=== PATIENT | male | born 1970 | race Caucasian/White ===

== ENCOUNTER 2022-03-08 16:23 | Inpatient (IN) | payer OTHER ==
[2022-03-08 17:24] VITALS: BMI 25.8
[2022-03-08] MEDS ORDERED: LOPERAMIDE HCL 2 MG CAPSULE PO PRN (17:41)
[2022-03-08] MEDS ORDERED: P-EPHED 60MG/TRIPROLIDI 2.5MG TABLET PO PRN (17:41)
[2022-03-08] MEDS ORDERED: guaiFENesin 200 MG/10 ML 10 ML UNIT-DOSE CUPS PO PRN (17:41)
[2022-03-08] MEDS ORDERED: MAGNESIUM CITRATE 300 ML BOTTLE PO PRN (17:41)
[2022-03-08] MEDS ORDERED: MAG HYDROX/AL HYDROX/SIMETH 30 ML UNIT-DOSE CUP PO PRN (17:41)
[2022-03-08] MEDS ORDERED: MAGNESIUM HYDROX 2400MG/30ML ORAL SUSPENSION 30 ML CUP PO PRN (17:41)
[2022-03-08] MEDS: GABAPENTIN 300 MG CAPSULE PO SCH (21:27)
[2022-03-08] MEDS: THIAMINE HCL 100 MG TABLET (FP) PO SCH (21:27)
[2022-03-08] MEDS: hydrOXYzine PAMOATE 25 MG CAPSULE (FP) PO SCH ×2 (21:27→21:29)
[2022-03-08] MEDS: QUEtiapine FUMARATE 50 MG TABLET PO SCH (21:27)
[2022-03-08] MEDS: ATORVASTATIN CA 80 MG TABLET (FP) PO SCH (21:27)
[2022-03-08] MEDS ORDERED: TUBERCULIN PPD 5 TU/0.1ML VIAL ID ONE (21:28)
[2022-03-08] MEDS: MELATONIN 5 MG TABLETS PO SCH (21:29)
[2022-03-09] MEDS: metFORMIN HCL 500 MG TABLET (FP) PO SCH ×2 (07:27→17:04)
[2022-03-09] MEDS: GABAPENTIN 300 MG CAPSULE PO SCH ×3 (07:27→21:08)
[2022-03-09] MEDS: hydrOXYzine PAMOATE 25 MG CAPSULE (FP) PO SCH ×5 (07:27→21:10)
[2022-03-09] MEDS: PRENATAL VITAMINS W/ FOLIC ACID TABLET (FP) PO SCH (09:28)
[2022-03-09] MEDS: QUEtiapine FUMARATE 50 MG TABLET PO SCH (09:28)
[2022-03-09 10:51] LABS: HEMATOCRIT 36.7 % (35.4-49); HEMOGLOBIN 12.5 GM/dL (11.7-16.9); MCH 27.4 pg (25.7-33.7); MCHC 34.2 g/dl (32.0-35.9); MEAN CELL VOLUME 80.2 fl (80-96); MEAN PLT VOLUME 8.5 fl (7.5-11.1); PLATELET COUNT 193 10^3/uL (134-434); RBC 4.57 M/mm3 (4.00-5.60); RDW 12.8 % (11.9-15.9); WHITE BLOOD COUNT 3.8 K/mm3 (4.0-10.0)
[2022-03-09 10:55] LABS: ALBUMIN 3.4 g/dl (3.4-5.0); BLOOD UREA NITROGEN 16.3 mg/dL (7-18); CALCIUM 9.2 mg/dL (8.5-10.1)
[2022-03-09 10:58] LABS: CREATININE 0.7 mg/dL (0.55-1.3); TOT PROT 6.2 g/dl (6.4-8.2)
[2022-03-09 10:59] LABS: BILIRUBIN,TOTAL 0.1 mg/dL (0.2-1)
[2022-03-09 13:44] LABS: SYPHILIS W/ RPR CONF NON-REACTIVE (NONREACTIVE)
[2022-03-09 14:25] LABS: URINE APPEARANCE CLEAR; URINE BILIRUBIN NEGATIVE (NEGATIVE); URINE COLOR YELLOW; URINE GLUCOSE (UA) TRACE (NEGATIVE); URINE KETONE NEGATIVE (NEGATIVE); URINE LEUK ESTERASE NEGATIVE (NEGATIVE); URINE NITRITE NEGATIVE (NEGATIVE); URINE PROTEIN NEGATIVE (NEGATIVE); URINE UROBILINOGEN 0.2 mg/dL (0.2-1.0)
[2022-03-09] MEDS: ATORVASTATIN CA 80 MG TABLET (FP) PO SCH (21:08)
[2022-03-09] MEDS: MELATONIN 5 MG TABLETS PO SCH (21:08)
[2022-03-09] MEDS: THIAMINE HCL 100 MG TABLET (FP) PO SCH (21:08)
[2022-03-09] MEDS: BACITRACIN 0.9 GM PACKET TP SCH (21:10)
[2022-03-09] MEDS: QUEtiapine FUMARATE 100 MG TABLET (FP) PO SCH (21:10)
[2022-03-10] MEDS: GABAPENTIN 300 MG CAPSULE PO SCH ×3 (06:48→21:16)
[2022-03-10] MEDS: hydrOXYzine PAMOATE 25 MG CAPSULE (FP) PO SCH ×3 (06:48→13:35)
[2022-03-10] MEDS: metFORMIN HCL 500 MG TABLET (FP) PO SCH ×2 (06:48→16:50)
[2022-03-10] MEDS: BACITRACIN 0.9 GM PACKET TP SCH ×2 (10:02→21:16)
[2022-03-10] MEDS: PRENATAL VITAMINS W/ FOLIC ACID TABLET (FP) PO SCH (10:02)
[2022-03-10] MEDS: QUEtiapine FUMARATE 50 MG TABLET PO SCH (10:02)
[2022-03-10] MEDS: ACETAMINOPHEN 325 MG TABLET (FP) PO PRN ×2 (11:53→20:01)
[2022-03-10] MEDS: MELATONIN 5 MG TABLETS PO SCH (21:16)
[2022-03-10] MEDS: ATORVASTATIN CA 80 MG TABLET (FP) PO SCH (21:16)
[2022-03-10] MEDS: THIAMINE HCL 100 MG TABLET (FP) PO SCH (21:16)
[2022-03-10] MEDS: QUEtiapine FUMARATE 100 MG TABLET (FP) PO SCH (21:16)
[2022-03-11] MEDS: ACETAMINOPHEN 325 MG TABLET (FP) PO PRN (01:12)
[2022-03-11] MEDS: GABAPENTIN 300 MG CAPSULE PO SCH ×3 (06:29→21:01)
[2022-03-11] MEDS: metFORMIN HCL 500 MG TABLET (FP) PO SCH ×2 (06:29→17:33)
[2022-03-11] MEDS: METHOCARBAMOL 500 MG TABLET PO PRN ×2 (09:01→17:33)
[2022-03-11] MEDS: QUEtiapine FUMARATE 50 MG TABLET PO SCH (10:01)
[2022-03-11] MEDS: PRENATAL VITAMINS W/ FOLIC ACID TABLET (FP) PO SCH (10:01)
[2022-03-11] MEDS: METHYL SALICYLATE/MENTHOL OINT 30 GM TUBE TP SCH ×2 (10:01→21:02)
[2022-03-11] MEDS: BACITRACIN 0.9 GM PACKET TP SCH ×2 (10:01→21:01)
[2022-03-11] MEDS: ATORVASTATIN CA 80 MG TABLET (FP) PO SCH (21:01)
[2022-03-11] MEDS: THIAMINE HCL 100 MG TABLET (FP) PO SCH (21:02)
[2022-03-11] MEDS: QUEtiapine FUMARATE 100 MG TABLET (FP) PO SCH (21:02)
[2022-03-11] MEDS: MELATONIN 5 MG TABLETS PO SCH (21:02)
[2022-03-11] MEDS: hydrOXYzine PAMOATE 25 MG CAPSULE (FP) PO PRN (22:36)
[2022-03-12] MEDS: metFORMIN HCL 500 MG TABLET (FP) PO SCH ×2 (06:34→16:45)
[2022-03-12] MEDS: GABAPENTIN 300 MG CAPSULE PO SCH ×3 (06:34→21:23)
[2022-03-12] MEDS: BACITRACIN 0.9 GM PACKET TP SCH ×2 (09:12→21:23)
[2022-03-12] MEDS: METHYL SALICYLATE/MENTHOL OINT 30 GM TUBE TP SCH ×2 (09:12→21:24)
[2022-03-12] MEDS: PRENATAL VITAMINS W/ FOLIC ACID TABLET (FP) PO SCH (09:12)
[2022-03-12] MEDS: METHOCARBAMOL 500 MG TABLET PO PRN ×2 (09:13→16:45)
[2022-03-12] MEDS: QUEtiapine FUMARATE 50 MG TABLET PO SCH (09:13)
[2022-03-12] MEDS: ACETAMINOPHEN 325 MG TABLET (FP) PO PRN ×2 (12:41→18:50)
[2022-03-12] MEDS: MELATONIN 5 MG TABLETS PO SCH (21:22)
[2022-03-12] MEDS: THIAMINE HCL 100 MG TABLET (FP) PO SCH (21:22)
[2022-03-12] MEDS: ATORVASTATIN CA 80 MG TABLET (FP) PO SCH (21:23)
[2022-03-12] MEDS: QUEtiapine FUMARATE 100 MG TABLET (FP) PO SCH (21:23)
[2022-03-12] MEDS: hydrOXYzine PAMOATE 25 MG CAPSULE (FP) PO PRN (21:24)
[2022-03-13] MEDS: metFORMIN HCL 500 MG TABLET (FP) PO SCH ×2 (06:34→16:43)
[2022-03-13] MEDS: ACETAMINOPHEN 325 MG TABLET (FP) PO PRN ×2 (06:35→19:06)
[2022-03-13] MEDS: GABAPENTIN 300 MG CAPSULE PO SCH ×3 (06:35→21:15)
[2022-03-13] MEDS: PRENATAL VITAMINS W/ FOLIC ACID TABLET (FP) PO SCH (10:00)
[2022-03-13] MEDS: BACITRACIN 0.9 GM PACKET TP SCH ×2 (10:00→21:13)
[2022-03-13] MEDS: QUEtiapine FUMARATE 50 MG TABLET PO SCH (10:00)
[2022-03-13] MEDS: METHYL SALICYLATE/MENTHOL OINT 30 GM TUBE TP SCH ×2 (10:01→21:43)
[2022-03-13] MEDS: METHOCARBAMOL 500 MG TABLET PO PRN (19:06)
[2022-03-13] MEDS: MELATONIN 5 MG TABLETS PO SCH (21:13)
[2022-03-13] MEDS: THIAMINE HCL 100 MG TABLET (FP) PO SCH (21:13)
[2022-03-13] MEDS: QUEtiapine FUMARATE 100 MG TABLET (FP) PO SCH (21:15)
[2022-03-13] MEDS: hydrOXYzine PAMOATE 25 MG CAPSULE (FP) PO PRN (21:15)
[2022-03-13] MEDS: ATORVASTATIN CA 80 MG TABLET (FP) PO SCH (21:15)
[2022-03-14] MEDS: metFORMIN HCL 500 MG TABLET (FP) PO SCH ×2 (06:14→16:31)
[2022-03-14] MEDS: GABAPENTIN 300 MG CAPSULE PO SCH ×3 (06:14→21:32)
[2022-03-14] MEDS: METHOCARBAMOL 500 MG TABLET PO PRN ×2 (10:16→21:34)
[2022-03-14] MEDS: PRENATAL VITAMINS W/ FOLIC ACID TABLET (FP) PO SCH (10:16)
[2022-03-14] MEDS: BACITRACIN 0.9 GM PACKET TP SCH ×2 (10:16→21:32)
[2022-03-14] MEDS: QUEtiapine FUMARATE 50 MG TABLET PO SCH (10:16)
[2022-03-14] MEDS: METHYL SALICYLATE/MENTHOL OINT 30 GM TUBE TP SCH ×2 (10:17→21:54)
[2022-03-14] MEDS: MELATONIN 5 MG TABLETS PO SCH (21:32)
[2022-03-14] MEDS: ATORVASTATIN CA 80 MG TABLET (FP) PO SCH (21:32)
[2022-03-14] MEDS: QUEtiapine FUMARATE 100 MG TABLET (FP) PO SCH (21:32)
[2022-03-14] MEDS: THIAMINE HCL 100 MG TABLET (FP) PO SCH (21:32)
[2022-03-15] MEDS: metFORMIN HCL 500 MG TABLET (FP) PO SCH ×2 (06:20→16:48)
[2022-03-15] MEDS: GABAPENTIN 300 MG CAPSULE PO SCH ×3 (06:20→21:32)
[2022-03-15] MEDS: METHOCARBAMOL 500 MG TABLET PO PRN (06:26)
[2022-03-15] MEDS: METHYL SALICYLATE/MENTHOL OINT 30 GM TUBE TP SCH ×2 (09:59→21:35)
[2022-03-15] MEDS: BACITRACIN 0.9 GM PACKET TP SCH ×2 (09:59→21:32)
[2022-03-15] MEDS: QUEtiapine FUMARATE 50 MG TABLET PO SCH (10:00)
[2022-03-15] MEDS: PRENATAL VITAMINS W/ FOLIC ACID TABLET (FP) PO SCH (10:00)
[2022-03-15] MEDS ORDERED: AMOXICILLIN 500 MG CAPSULE (FP) PO ONE (11:04)
[2022-03-15] MEDS: AMOXICILLIN 500 MG CAPSULE (FP) PO SCH ×2 (14:40→21:32)
[2022-03-15] MEDS: ATORVASTATIN CA 80 MG TABLET (FP) PO SCH (21:32)
[2022-03-15] MEDS: THIAMINE HCL 100 MG TABLET (FP) PO SCH (21:32)
[2022-03-15] MEDS: QUEtiapine FUMARATE 100 MG TABLET (FP) PO SCH (21:32)
[2022-03-15] MEDS: MELATONIN 5 MG TABLETS PO SCH (21:32)
[2022-03-15] MEDS: hydrOXYzine PAMOATE 25 MG CAPSULE (FP) PO PRN (21:33)
[2022-03-16] MEDS: metFORMIN HCL 500 MG TABLET (FP) PO SCH ×2 (06:40→16:33)
[2022-03-16] MEDS: METHOCARBAMOL 500 MG TABLET PO PRN (06:40)
[2022-03-16] MEDS: GABAPENTIN 300 MG CAPSULE PO SCH ×3 (06:40→21:32)
[2022-03-16] MEDS: AMOXICILLIN 500 MG CAPSULE (FP) PO SCH ×3 (06:40→21:32)
[2022-03-16] MEDS: BACITRACIN 0.9 GM PACKET TP SCH ×2 (10:07→21:32)
[2022-03-16] MEDS: QUEtiapine FUMARATE 50 MG TABLET PO SCH (10:07)
[2022-03-16] MEDS: PRENATAL VITAMINS W/ FOLIC ACID TABLET (FP) PO SCH (10:07)
[2022-03-16] MEDS: METHYL SALICYLATE/MENTHOL OINT 30 GM TUBE TP SCH ×2 (10:08→21:32)
[2022-03-16] MEDS: ACETAMINOPHEN 325 MG TABLET (FP) PO PRN (18:48)
[2022-03-16] MEDS: QUEtiapine FUMARATE 100 MG TABLET (FP) PO SCH (21:32)
[2022-03-16] MEDS: THIAMINE HCL 100 MG TABLET (FP) PO SCH (21:32)
[2022-03-16] MEDS: MELATONIN 5 MG TABLETS PO SCH (21:32)
[2022-03-16] MEDS: ATORVASTATIN CA 80 MG TABLET (FP) PO SCH (21:33)
[2022-03-17] MEDS: AMOXICILLIN 500 MG CAPSULE (FP) PO SCH ×3 (06:20→21:26)
[2022-03-17] MEDS: metFORMIN HCL 500 MG TABLET (FP) PO SCH ×2 (06:20→16:31)
[2022-03-17] MEDS: GABAPENTIN 300 MG CAPSULE PO SCH ×3 (06:20→21:26)
[2022-03-17] MEDS: METHOCARBAMOL 500 MG TABLET PO PRN (06:20)
[2022-03-17] MEDS: METHYL SALICYLATE/MENTHOL OINT 30 GM TUBE TP SCH ×2 (09:37→21:27)
[2022-03-17] MEDS: QUEtiapine FUMARATE 50 MG TABLET PO SCH (09:37)
[2022-03-17] MEDS: PRENATAL VITAMINS W/ FOLIC ACID TABLET (FP) PO SCH (09:37)
[2022-03-17] MEDS: BACITRACIN 0.9 GM PACKET TP SCH ×2 (09:37→21:27)
[2022-03-17] MEDS: hydrOXYzine PAMOATE 25 MG CAPSULE (FP) PO PRN (21:26)
[2022-03-17] MEDS: ATORVASTATIN CA 80 MG TABLET (FP) PO SCH (21:27)
[2022-03-17] MEDS: THIAMINE HCL 100 MG TABLET (FP) PO SCH (21:28)
[2022-03-17] MEDS: QUEtiapine FUMARATE 100 MG TABLET (FP) PO SCH (21:28)
[2022-03-17] MEDS: MELATONIN 5 MG TABLETS PO SCH (21:28)
[2022-03-18] MEDS: METHOCARBAMOL 500 MG TABLET PO PRN (06:36)
[2022-03-18] MEDS: metFORMIN HCL 500 MG TABLET (FP) PO SCH ×2 (06:36→17:14)
[2022-03-18] MEDS: AMOXICILLIN 500 MG CAPSULE (FP) PO SCH ×3 (06:36→21:44)
[2022-03-18] MEDS: GABAPENTIN 300 MG CAPSULE PO SCH ×3 (06:37→21:45)
[2022-03-18] MEDS: BACITRACIN 0.9 GM PACKET TP SCH ×2 (10:12→21:44)
[2022-03-18] MEDS: METHYL SALICYLATE/MENTHOL OINT 30 GM TUBE TP SCH ×2 (10:13→21:46)
[2022-03-18] MEDS: PRENATAL VITAMINS W/ FOLIC ACID TABLET (FP) PO SCH (10:13)
[2022-03-18] MEDS: QUEtiapine FUMARATE 50 MG TABLET PO SCH (10:13)
[2022-03-18] MEDS: THIAMINE HCL 100 MG TABLET (FP) PO SCH (21:44)
[2022-03-18] MEDS: ATORVASTATIN CA 80 MG TABLET (FP) PO SCH (21:45)
[2022-03-18] MEDS: MELATONIN 5 MG TABLETS PO SCH (21:45)
[2022-03-18] MEDS: QUEtiapine FUMARATE 100 MG TABLET (FP) PO SCH (21:45)
[2022-03-19] MEDS: AMOXICILLIN 500 MG CAPSULE (FP) PO SCH ×3 (06:17→21:26)
[2022-03-19] MEDS: metFORMIN HCL 500 MG TABLET (FP) PO SCH ×2 (06:17→16:42)
[2022-03-19] MEDS: GABAPENTIN 300 MG CAPSULE PO SCH ×3 (06:17→21:26)
[2022-03-19] MEDS: METHYL SALICYLATE/MENTHOL OINT 30 GM TUBE TP SCH ×2 (10:07→21:27)
[2022-03-19] MEDS: QUEtiapine FUMARATE 50 MG TABLET PO SCH (10:07)
[2022-03-19] MEDS: PRENATAL VITAMINS W/ FOLIC ACID TABLET (FP) PO SCH (10:07)
[2022-03-19] MEDS: BACITRACIN 0.9 GM PACKET TP SCH ×2 (10:07→21:26)
[2022-03-19] MEDS: MELATONIN 5 MG TABLETS PO SCH (21:26)
[2022-03-19] MEDS: ATORVASTATIN CA 80 MG TABLET (FP) PO SCH (21:26)
[2022-03-19] MEDS: QUEtiapine FUMARATE 100 MG TABLET (FP) PO SCH (21:26)
[2022-03-19] MEDS: THIAMINE HCL 100 MG TABLET (FP) PO SCH (21:26)
[2022-03-20] MEDS: AMOXICILLIN 500 MG CAPSULE (FP) PO SCH ×3 (07:00→21:23)
[2022-03-20] MEDS: metFORMIN HCL 500 MG TABLET (FP) PO SCH ×2 (07:00→16:44)
[2022-03-20] MEDS: GABAPENTIN 300 MG CAPSULE PO SCH ×3 (07:00→21:23)
[2022-03-20] MEDS: METHYL SALICYLATE/MENTHOL OINT 30 GM TUBE TP SCH ×2 (09:32→21:24)
[2022-03-20] MEDS: PRENATAL VITAMINS W/ FOLIC ACID TABLET (FP) PO SCH (09:32)
[2022-03-20] MEDS: QUEtiapine FUMARATE 50 MG TABLET PO SCH (09:32)
[2022-03-20] MEDS: BACITRACIN 0.9 GM PACKET TP SCH ×2 (09:32→21:23)
[2022-03-20] MEDS: ATORVASTATIN CA 80 MG TABLET (FP) PO SCH (21:23)
[2022-03-20] MEDS: METHOCARBAMOL 500 MG TABLET PO PRN (21:23)
[2022-03-20] MEDS: QUEtiapine FUMARATE 100 MG TABLET (FP) PO SCH (21:23)
[2022-03-20] MEDS: MELATONIN 5 MG TABLETS PO SCH (21:23)
[2022-03-20] MEDS: THIAMINE HCL 100 MG TABLET (FP) PO SCH (21:23)
[2022-03-21] MEDS: metFORMIN HCL 500 MG TABLET (FP) PO SCH ×2 (06:18→16:39)
[2022-03-21] MEDS: GABAPENTIN 300 MG CAPSULE PO SCH ×3 (06:18→21:28)
[2022-03-21] MEDS: AMOXICILLIN 500 MG CAPSULE (FP) PO SCH ×3 (06:18→21:29)
[2022-03-21] MEDS: QUEtiapine FUMARATE 50 MG TABLET PO SCH (10:02)
[2022-03-21] MEDS: METHYL SALICYLATE/MENTHOL OINT 30 GM TUBE TP SCH ×2 (10:02→21:29)
[2022-03-21] MEDS: BACITRACIN 0.9 GM PACKET TP SCH ×2 (10:02→21:28)
[2022-03-21] MEDS: PRENATAL VITAMINS W/ FOLIC ACID TABLET (FP) PO SCH (10:02)
[2022-03-21] MEDS: METHOCARBAMOL 500 MG TABLET PO PRN (10:03)
[2022-03-21] MEDS: ACETAMINOPHEN 325 MG TABLET (FP) PO PRN (16:38)
[2022-03-21] MEDS: MELATONIN 5 MG TABLETS PO SCH (21:27)
[2022-03-21] MEDS: ATORVASTATIN CA 80 MG TABLET (FP) PO SCH (21:28)
[2022-03-21] MEDS: QUEtiapine FUMARATE 100 MG TABLET (FP) PO SCH (21:28)
[2022-03-21] MEDS: THIAMINE HCL 100 MG TABLET (FP) PO SCH (21:29)
[2022-03-22] MEDS: GABAPENTIN 300 MG CAPSULE PO SCH ×3 (06:25→21:27)
[2022-03-22] MEDS: METHOCARBAMOL 500 MG TABLET PO PRN (06:25)
[2022-03-22] MEDS: metFORMIN HCL 500 MG TABLET (FP) PO SCH ×2 (06:25→16:38)
[2022-03-22] MEDS: AMOXICILLIN 500 MG CAPSULE (FP) PO SCH ×3 (06:25→21:27)
[2022-03-22] MEDS: BACITRACIN 0.9 GM PACKET TP SCH ×2 (10:04→21:27)
[2022-03-22] MEDS: QUEtiapine FUMARATE 50 MG TABLET PO SCH (10:05)
[2022-03-22] MEDS: PRENATAL VITAMINS W/ FOLIC ACID TABLET (FP) PO SCH (10:05)
[2022-03-22] MEDS: METHYL SALICYLATE/MENTHOL OINT 30 GM TUBE TP SCH ×2 (10:05→21:27)
[2022-03-22] MEDS ORDERED: COLLOIDAL OATMEAL 1 BAR EACH TP PRN (16:18)
[2022-03-22] MEDS: THIAMINE HCL 100 MG TABLET (FP) PO SCH (21:26)
[2022-03-22] MEDS: ATORVASTATIN CA 80 MG TABLET (FP) PO SCH (21:27)
[2022-03-22] MEDS: QUEtiapine FUMARATE 100 MG TABLET (FP) PO SCH (21:27)
[2022-03-22] MEDS: MELATONIN 5 MG TABLETS PO SCH (21:27)
[2022-03-23] MEDS: GABAPENTIN 300 MG CAPSULE PO SCH ×3 (06:23→21:25)
[2022-03-23] MEDS: metFORMIN HCL 500 MG TABLET (FP) PO SCH ×2 (06:23→16:36)
[2022-03-23] MEDS: AMOXICILLIN 500 MG CAPSULE (FP) PO SCH ×3 (06:23→21:24)
[2022-03-23] MEDS: METHOCARBAMOL 500 MG TABLET PO PRN (06:23)
[2022-03-23] MEDS: QUEtiapine FUMARATE 50 MG TABLET PO SCH (09:55)
[2022-03-23] MEDS: PRENATAL VITAMINS W/ FOLIC ACID TABLET (FP) PO SCH (09:56)
[2022-03-23] MEDS: BACITRACIN 0.9 GM PACKET TP SCH ×2 (09:56→21:24)
[2022-03-23] MEDS: METHYL SALICYLATE/MENTHOL OINT 30 GM TUBE TP SCH ×2 (09:56→21:25)
[2022-03-23] MEDS: THIAMINE HCL 100 MG TABLET (FP) PO SCH (21:24)
[2022-03-23] MEDS: QUEtiapine FUMARATE 100 MG TABLET (FP) PO SCH (21:24)
[2022-03-23] MEDS: ATORVASTATIN CA 80 MG TABLET (FP) PO SCH (21:24)
[2022-03-23] MEDS: MELATONIN 5 MG TABLETS PO SCH (21:24)
[2022-03-23] MEDS: ACETAMINOPHEN 325 MG TABLET (FP) PO PRN (22:39)
[2022-03-23] MEDS: NEOMYCIN/POLYMYXN/HC OTIC SOLUTION 10 ML BOTTLE AD SCH (23:15)
[2022-03-24] MEDS: AMOXICILLIN 500 MG CAPSULE (FP) PO SCH ×2 (06:32→13:28)
[2022-03-24] MEDS: NEOMYCIN/POLYMYXN/HC OTIC SOLUTION 10 ML BOTTLE AD SCH ×3 (06:32→21:51)
[2022-03-24] MEDS: METHOCARBAMOL 500 MG TABLET PO PRN (06:32)
[2022-03-24] MEDS: GABAPENTIN 300 MG CAPSULE PO SCH ×3 (06:32→21:50)
[2022-03-24] MEDS: ACETAMINOPHEN 325 MG TABLET (FP) PO PRN ×4 (06:33→23:02)
[2022-03-24] MEDS: metFORMIN HCL 500 MG TABLET (FP) PO SCH ×2 (06:45→17:05)
[2022-03-24] MEDS: BACITRACIN 0.9 GM PACKET TP SCH ×2 (10:10→21:51)
[2022-03-24] MEDS: PRENATAL VITAMINS W/ FOLIC ACID TABLET (FP) PO SCH (10:10)
[2022-03-24] MEDS: QUEtiapine FUMARATE 50 MG TABLET PO SCH (10:10)
[2022-03-24] MEDS: METHYL SALICYLATE/MENTHOL OINT 30 GM TUBE TP SCH ×2 (10:12→21:52)
[2022-03-24] MEDS: CLINDAMYCIN HCL 150 MG CAPSULE (FP) PO SCH ×2 (18:15→23:02)
[2022-03-24] MEDS: ATORVASTATIN CA 80 MG TABLET (FP) PO SCH (21:51)
[2022-03-24] MEDS: THIAMINE HCL 100 MG TABLET (FP) PO SCH (21:52)
[2022-03-24] MEDS: MELATONIN 5 MG TABLETS PO SCH (21:52)
[2022-03-24] MEDS: SULFAMETHOXAZOLE/TRIMETHOPRIM 800MG/160MG D.S. TABLET PO SCH (21:52)
[2022-03-24] MEDS: QUEtiapine FUMARATE 100 MG TABLET (FP) PO SCH (21:52)
[2022-03-25] MEDS: GABAPENTIN 300 MG CAPSULE PO SCH ×3 (06:37→21:18)
[2022-03-25] MEDS: NEOMYCIN/POLYMYXN/HC OTIC SOLUTION 10 ML BOTTLE AD SCH ×3 (06:37→21:18)
[2022-03-25] MEDS: metFORMIN HCL 500 MG TABLET (FP) PO SCH ×2 (06:37→16:37)
[2022-03-25] MEDS: CLINDAMYCIN HCL 150 MG CAPSULE (FP) PO SCH ×3 (06:37→18:37)
[2022-03-25] MEDS: QUEtiapine FUMARATE 50 MG TABLET PO SCH (09:46)
[2022-03-25] MEDS: SULFAMETHOXAZOLE/TRIMETHOPRIM 800MG/160MG D.S. TABLET PO SCH ×2 (09:46→22:14)
[2022-03-25] MEDS: BACITRACIN 0.9 GM PACKET TP SCH ×2 (09:46→21:18)
[2022-03-25] MEDS: METHYL SALICYLATE/MENTHOL OINT 30 GM TUBE TP SCH ×2 (09:47→21:21)
[2022-03-25] MEDS: PRENATAL VITAMINS W/ FOLIC ACID TABLET (FP) PO SCH (09:47)
[2022-03-25] MEDS: ACETAMINOPHEN 325 MG TABLET (FP) PO PRN ×2 (11:00→16:31)
[2022-03-25] MEDS: ATORVASTATIN CA 80 MG TABLET (FP) PO SCH (21:18)
[2022-03-25] MEDS: MELATONIN 5 MG TABLETS PO SCH (21:19)
[2022-03-25] MEDS: THIAMINE HCL 100 MG TABLET (FP) PO SCH (21:21)
[2022-03-25] MEDS: QUEtiapine FUMARATE 100 MG TABLET (FP) PO SCH (21:21)
[2022-03-26] MEDS: CLINDAMYCIN HCL 150 MG CAPSULE (FP) PO SCH ×4 (00:30→17:08)
[2022-03-26] MEDS: ACETAMINOPHEN 325 MG TABLET (FP) PO PRN ×2 (01:49→15:42)
[2022-03-26] MEDS: GABAPENTIN 300 MG CAPSULE PO SCH ×3 (06:43→22:03)
[2022-03-26] MEDS: metFORMIN HCL 500 MG TABLET (FP) PO SCH ×2 (06:43→16:51)
[2022-03-26] MEDS: NEOMYCIN/POLYMYXN/HC OTIC SOLUTION 10 ML BOTTLE AD SCH ×3 (06:44→22:04)
[2022-03-26] MEDS: SULFAMETHOXAZOLE/TRIMETHOPRIM 800MG/160MG D.S. TABLET PO SCH ×2 (09:32→22:03)
[2022-03-26] MEDS: BACITRACIN 0.9 GM PACKET TP SCH ×2 (09:33→22:03)
[2022-03-26] MEDS: PRENATAL VITAMINS W/ FOLIC ACID TABLET (FP) PO SCH (09:33)
[2022-03-26] MEDS: QUEtiapine FUMARATE 50 MG TABLET PO SCH (09:33)
[2022-03-26] MEDS: METHYL SALICYLATE/MENTHOL OINT 30 GM TUBE TP SCH ×2 (09:33→23:15)
[2022-03-26] MEDS: QUEtiapine FUMARATE 100 MG TABLET (FP) PO SCH (22:03)
[2022-03-26] MEDS: ATORVASTATIN CA 80 MG TABLET (FP) PO SCH (22:03)
[2022-03-26] MEDS: THIAMINE HCL 100 MG TABLET (FP) PO SCH (22:03)
[2022-03-26] MEDS: MELATONIN 5 MG TABLETS PO SCH (22:03)
[2022-03-27] MEDS: CLINDAMYCIN HCL 150 MG CAPSULE (FP) PO SCH ×4 (01:59→18:09)
[2022-03-27] MEDS: GABAPENTIN 300 MG CAPSULE PO SCH ×3 (05:56→21:30)
[2022-03-27] MEDS: METHOCARBAMOL 500 MG TABLET PO PRN (05:56)
[2022-03-27] MEDS: NEOMYCIN/POLYMYXN/HC OTIC SOLUTION 10 ML BOTTLE AD SCH ×3 (05:59→21:30)
[2022-03-27] MEDS: metFORMIN HCL 500 MG TABLET (FP) PO SCH ×2 (06:37→17:06)
[2022-03-27] MEDS: QUEtiapine FUMARATE 50 MG TABLET PO SCH (09:23)
[2022-03-27] MEDS: SULFAMETHOXAZOLE/TRIMETHOPRIM 800MG/160MG D.S. TABLET PO SCH ×2 (09:23→21:30)
[2022-03-27] MEDS: BACITRACIN 0.9 GM PACKET TP SCH ×2 (09:23→21:30)
[2022-03-27] MEDS: PRENATAL VITAMINS W/ FOLIC ACID TABLET (FP) PO SCH (09:23)
[2022-03-27] MEDS: METHYL SALICYLATE/MENTHOL OINT 30 GM TUBE TP SCH ×2 (10:06→21:30)
[2022-03-27] MEDS: THIAMINE HCL 100 MG TABLET (FP) PO SCH (21:30)
[2022-03-27] MEDS: QUEtiapine FUMARATE 100 MG TABLET (FP) PO SCH (21:30)
[2022-03-27] MEDS: ATORVASTATIN CA 80 MG TABLET (FP) PO SCH (21:30)
[2022-03-27] MEDS: MELATONIN 5 MG TABLETS PO SCH (21:30)
[2022-03-27] MEDS: ACETAMINOPHEN 325 MG TABLET (FP) PO PRN (21:30)
[2022-03-28] MEDS: CLINDAMYCIN HCL 150 MG CAPSULE (FP) PO SCH ×4 (00:55→17:19)
[2022-03-28] MEDS: GABAPENTIN 300 MG CAPSULE PO SCH ×3 (06:13→21:33)
[2022-03-28] MEDS: NEOMYCIN/POLYMYXN/HC OTIC SOLUTION 10 ML BOTTLE AD SCH ×2 (06:13→13:26)
[2022-03-28] MEDS: metFORMIN HCL 500 MG TABLET (FP) PO SCH ×2 (06:14→16:34)
[2022-03-28] MEDS: BACITRACIN 0.9 GM PACKET TP SCH ×2 (09:53→21:33)
[2022-03-28] MEDS: SULFAMETHOXAZOLE/TRIMETHOPRIM 800MG/160MG D.S. TABLET PO SCH ×2 (09:54→21:33)
[2022-03-28] MEDS: QUEtiapine FUMARATE 50 MG TABLET PO SCH (09:54)
[2022-03-28] MEDS: PRENATAL VITAMINS W/ FOLIC ACID TABLET (FP) PO SCH (09:54)
[2022-03-28] MEDS: METHYL SALICYLATE/MENTHOL OINT 30 GM TUBE TP SCH ×2 (09:55→21:34)
[2022-03-28] MEDS: ACETAMINOPHEN 325 MG TABLET (FP) PO PRN (16:31)
[2022-03-28] MEDS: THIAMINE HCL 100 MG TABLET (FP) PO SCH (21:33)
[2022-03-28] MEDS: ATORVASTATIN CA 80 MG TABLET (FP) PO SCH (21:33)
[2022-03-28] MEDS: QUEtiapine FUMARATE 100 MG TABLET (FP) PO SCH (21:33)
[2022-03-28] MEDS: MELATONIN 5 MG TABLETS PO SCH (21:33)
[2022-03-29] MEDS: CLINDAMYCIN HCL 150 MG CAPSULE (FP) PO SCH ×2 (02:26→06:13)
[2022-03-29] MEDS: metFORMIN HCL 500 MG TABLET (FP) PO SCH (06:13)
[2022-03-29] MEDS: METHOCARBAMOL 500 MG TABLET PO PRN (06:14)
[2022-03-29] MEDS: GABAPENTIN 300 MG CAPSULE PO SCH (06:14)
[2022-03-29 06:33] VITALS: BP 121/85; PULSE 86; TEMP 98.9
[2022-03-29] MEDS: QUEtiapine FUMARATE 50 MG TABLET PO SCH (09:24)
[2022-03-29] MEDS: BACITRACIN 0.9 GM PACKET TP SCH (09:24)
[2022-03-29] MEDS: SULFAMETHOXAZOLE/TRIMETHOPRIM 800MG/160MG D.S. TABLET PO SCH (09:25)
[2022-03-29] MEDS: PRENATAL VITAMINS W/ FOLIC ACID TABLET (FP) PO SCH (09:25)
[2022-03-29] MEDS: METHYL SALICYLATE/MENTHOL OINT 30 GM TUBE TP SCH (09:26)
== END 2022-03-29 09:30 | disposition home or self-care (01) | DRG 772 ==
LOC: YASAS 16:23 → Y3E 19:28
PROVIDERS: ADMIT Allergy & Immunology; ATTEND Psychiatry & Neurology Pain Medicine
PROC: HZ42ZZZ Group Counseling for Substance Abuse Treatment, Cognitive-Behavioral (ICD-10-PCS; principal; 2022-03-08)
DX: F14.20 Cocaine dependence, uncomplicated (principal); F31.9 Bipolar disorder, unspecified; F19.24 Other psychoactive substance dependence with psychoactive substance-induced mood disorder; F19.282 Other psychoactive substance dependence with psychoactive substance-induced sleep disorder; I10 Essential (primary) hypertension; I25.10 Atherosclerotic heart disease of native coronary artery without angina pectoris; E11.9 Type 2 diabetes mellitus without complications; E78.5 Hyperlipidemia, unspecified; H66.91 Otitis media, unspecified, right ear; R45.88 Nonsuicidal self-harm; M19.90 Unspecified osteoarthritis, unspecified site; M79.605 Pain in left leg; Z88.6 Allergy status to analgesic agent; Z88.8 Allergy status to other drugs, medicaments and biological substances; Z91.013 Allergy to seafood; Z91.018 Allergy to other foods; Z95.5 Presence of coronary angioplasty implant and graft; Z79.84 Long term (current) use of oral hypoglycemic drugs; Z91.51 Personal history of suicidal behavior; Z56.0 Unemployment, unspecified; Z59.00 Homelessness unspecified
CPT/HCPCS: 36415; 80053; 81003; 82962; 85027; 86780; 86803; 87522; 87811

== ENCOUNTER 2022-03-23 18:48 | Emergency (ER) | payer OTHER ==
[2022-03-23 19:12] VITALS: BP 139/78; PULSE 93; TEMP 99.1; BMI 27.3
[2022-03-23] MEDS ORDERED: NEOMYCIN/POLYMYXN/HC OTIC SOLUTION 10 ML BOTTLE ONE (19:52)
[2022-03-23] MEDS ORDERED: ACETAMINOPHEN 500 MG TABLET (FP) ONE (20:00)
[2022-03-23] MEDS ORDERED: NEOMYCIN/POLYMYXN/HC OTIC SOLUTION 10 ML BOTTLE AD ONE (20:02)
[2022-03-23] MEDS ORDERED: ACETAMINOPHEN 500 MG TABLET (FP) PO ONE (20:02)
[2022-03-24] MEDS ORDERED: NEOMYCIN/POLYMYXN/HC OTIC SOLUTION 10 ML BOTTLE AD SCH
[2022-03-24] MEDS ORDERED: NEOMYCIN/POLYMYXN/HC OTIC SOLUTION 10 ML BOTTLE AD ONE
== END 2022-03-23 20:08 | disposition home or self-care (01) ==
LOC: JERFT 18:48 → JER 18:48 → JERFT 20:08
DX: H60.391 Other infective otitis externa, right ear (principal)
CPT/HCPCS: 99283-25

== ENCOUNTER 2022-11-11 13:17 | Inpatient (IN) | payer OTHER ==
[2022-11-11 13:58] VITALS: BMI 27.3
[2022-11-11] MEDS ORDERED: ACETAMINOPHEN 325 MG TABLET (FP) PO PRN (15:12)
[2022-11-11] MEDS ORDERED: MAG HYDROX/AL HYDROX/SIMETH 30 ML UNIT-DOSE CUP PO PRN (15:12)
[2022-11-11] MEDS ORDERED: guaiFENesin 200 MG/10 ML 10 ML UNIT-DOSE CUPS PO PRN (15:12)
[2022-11-11] MEDS ORDERED: P-EPHED 60MG/TRIPROLIDI 2.5MG TABLET PO PRN (15:12)
[2022-11-11] MEDS ORDERED: LOPERAMIDE HCL 2 MG CAPSULE PO PRN (15:12)
[2022-11-11] MEDS ORDERED: MAGNESIUM HYDROX 2400MG/30ML ORAL SUSPENSION 30 ML CUP PO PRN (15:12)
[2022-11-11] MEDS ORDERED: BENZOCAINE/MENTHOL (CHLORASEPTIC ) LOZENGE MM PRN (15:12)
[2022-11-11] MEDS ORDERED: IBUPROFEN 400 MG TABLET (FP) PO PRN (15:12)
[2022-11-11] MEDS ORDERED: NICOTINE 10 MG CARTRIDGE (INHALER) IH PRN (15:12)
[2022-11-11] MEDS ORDERED: POLYETHYLENE GLYCOL (HEALTHYLAX) 3350 17 GM PACKET PO PRN (15:12)
[2022-11-11] MEDS: metFORMIN HCL 500 MG TABLET (FP) PO SCH (19:42)
[2022-11-11] MEDS: GABAPENTIN 300 MG CAPSULE PO SCH ×2 (19:42→21:20)
[2022-11-11] MEDS: INSULIN SLIDING SCALE (NOVOLOG) 1 VIAL SQ SCH ×2 (19:42→21:22)
[2022-11-11] MEDS: PRENATAL VITAMINS W/ FOLIC ACID TABLET (FP) PO SCH (19:42)
[2022-11-11] MEDS ORDERED: INSULIN (NOVOLOG) ASPART 100 UNITS/ML 10ML VIAL ONE ×2 (19:53→22:03)
[2022-11-11] MEDS: MELATONIN 5 MG TABLETS PO SCH (21:20)
[2022-11-11] MEDS: THIAMINE HCL 100 MG TABLET (FP) PO SCH (21:20)
[2022-11-11] MEDS: ATORVASTATIN CA 80 MG TABLET (FP) PO SCH (21:21)
[2022-11-12] MEDS: GABAPENTIN 300 MG CAPSULE PO SCH ×3 (06:54→21:53)
[2022-11-12] MEDS: metFORMIN HCL 500 MG TABLET (FP) PO SCH ×2 (06:54→16:45)
[2022-11-12] MEDS: INSULIN SLIDING SCALE (NOVOLOG) 1 VIAL SQ SCH ×4 (07:22→21:55)
[2022-11-12] MEDS: PRENATAL VITAMINS W/ FOLIC ACID TABLET (FP) PO SCH (10:10)
[2022-11-12] MEDS: hydrOXYzine PAMOATE 25 MG CAPSULE (FP) PO PRN ×2 (10:11→21:53)
[2022-11-12 12:19] LABS: HEMATOCRIT 37.6 % (35.4-49); HEMOGLOBIN 12.7 GM/dL (11.7-16.9); MCH 28.4 pg (25.7-33.7); MCHC 33.8 g/dl (32.0-35.9); MEAN CELL VOLUME 83.9 fl (80-96); MEAN PLT VOLUME 7.8 fl (7.5-11.1); PLATELET COUNT 223 10^3/uL (134-434); RBC 4.49 M/mm3 (4.00-5.60); RDW 13.6 % (11.9-15.9); WHITE BLOOD COUNT 4.3 K/mm3 (4.0-10.0)
[2022-11-12 13:43] LABS: ALBUMIN 3.6 g/dl (3.4-5.0); BLOOD UREA NITROGEN 13.2 mg/dL (7-18)
[2022-11-12 13:46] LABS: CREATININE 0.7 mg/dL (0.55-1.3)
[2022-11-12 13:47] LABS: TOT PROT 6.2 g/dl (6.4-8.2)
[2022-11-12 13:48] LABS: BILIRUBIN,TOTAL 0.4 mg/dL (0.2-1)
[2022-11-12 13:51] LABS: CALCIUM 9.3 mg/dL (8.5-10.1)
[2022-11-12 14:33] LABS: SYPHILIS W/ RPR CONF NON-REACTIVE (NONREACTIVE)
[2022-11-12] MEDS: ATORVASTATIN CA 80 MG TABLET (FP) PO SCH (21:53)
[2022-11-12] MEDS: THIAMINE HCL 100 MG TABLET (FP) PO SCH (21:53)
[2022-11-12] MEDS: traZODone HCL 50 MG TABLET (FP) PO SCH (21:54)
[2022-11-12] MEDS: MELATONIN 5 MG TABLETS PO SCH (21:55)
[2022-11-13] MEDS: INSULIN SLIDING SCALE (NOVOLOG) 1 VIAL SQ SCH ×2 (06:51→11:57)
[2022-11-13] MEDS: GABAPENTIN 300 MG CAPSULE PO SCH ×3 (07:02→21:29)
[2022-11-13] MEDS: metFORMIN HCL 500 MG TABLET (FP) PO SCH ×2 (07:02→16:41)
[2022-11-13] MEDS: PRENATAL VITAMINS W/ FOLIC ACID TABLET (FP) PO SCH (09:45)
[2022-11-13] MEDS ORDERED: COLLOIDAL OATMEAL 1 BAR EACH TP PRN (12:16)
[2022-11-13] MEDS: hydrOXYzine PAMOATE 25 MG CAPSULE (FP) PO PRN (21:29)
[2022-11-13] MEDS: THIAMINE HCL 100 MG TABLET (FP) PO SCH (21:29)
[2022-11-13] MEDS: ATORVASTATIN CA 80 MG TABLET (FP) PO SCH (21:30)
[2022-11-13] MEDS: traZODone HCL 50 MG TABLET (FP) PO SCH (21:30)
[2022-11-13] MEDS: MELATONIN 5 MG TABLETS PO SCH (21:31)
[2022-11-14] MEDS: GABAPENTIN 300 MG CAPSULE PO SCH ×3 (06:56→21:24)
[2022-11-14] MEDS: metFORMIN HCL 500 MG TABLET (FP) PO SCH ×2 (06:56→16:44)
[2022-11-14] MEDS: INSULIN SLIDING SCALE (NOVOLOG) 1 VIAL SQ SCH (07:05)
[2022-11-14 07:48] VITALS: TEMP 96.9
[2022-11-14] MEDS: PRENATAL VITAMINS W/ FOLIC ACID TABLET (FP) PO SCH (10:33)
[2022-11-14] MEDS: hydrOXYzine PAMOATE 25 MG CAPSULE (FP) PO PRN ×2 (10:34→18:20)
[2022-11-14] MEDS: MELATONIN 5 MG TABLETS PO SCH (21:24)
[2022-11-14] MEDS: THIAMINE HCL 100 MG TABLET (FP) PO SCH (21:24)
[2022-11-14] MEDS: ATORVASTATIN CA 80 MG TABLET (FP) PO SCH (21:24)
[2022-11-14] MEDS: traZODone HCL 50 MG TABLET (FP) PO SCH (21:24)
[2022-11-15] MEDS: metFORMIN HCL 500 MG TABLET (FP) PO SCH (07:40)
[2022-11-15] MEDS: INSULIN SLIDING SCALE (NOVOLOG) 1 VIAL SQ SCH (07:40)
[2022-11-15] MEDS: GABAPENTIN 300 MG CAPSULE PO SCH ×2 (07:40→13:54)
[2022-11-15] MEDS: PRENATAL VITAMINS W/ FOLIC ACID TABLET (FP) PO SCH (10:19)
[2022-11-15 11:05] VITALS: BP 124/75; PULSE 76; RESP 16
== END 2022-11-15 14:39 | disposition home or self-care (01) | DRG 774 ==
LOC: YASAS 13:17 → Y3E 18:41
PROVIDERS: ADMIT Allergy & Immunology; ATTEND Allergy & Immunology
PROC: HZ2ZZZZ Detoxification Services for Substance Abuse Treatment (ICD-10-PCS; principal; 2022-11-11)
DX: F14.20 Cocaine dependence, uncomplicated (principal); F31.9 Bipolar disorder, unspecified; F19.282 Other psychoactive substance dependence with psychoactive substance-induced sleep disorder; F19.24 Other psychoactive substance dependence with psychoactive substance-induced mood disorder; F39 Unspecified mood [affective] disorder; Z72.0 Tobacco use; G47.00 Insomnia, unspecified; H66.90 Otitis media, unspecified, unspecified ear; E78.5 Hyperlipidemia, unspecified; I25.10 Atherosclerotic heart disease of native coronary artery without angina pectoris; I10 Essential (primary) hypertension; E11.9 Type 2 diabetes mellitus without complications; Z79.84 Long term (current) use of oral hypoglycemic drugs; M19.041 Primary osteoarthritis, right hand; M19.042 Primary osteoarthritis, left hand; M48.061 Spinal stenosis, lumbar region without neurogenic claudication; M54.50 Low back pain, unspecified; G89.29 Other chronic pain; Z91.51 Personal history of suicidal behavior; Z88.8 Allergy status to other drugs, medicaments and biological substances; Z91.018 Allergy to other foods; Z91.013 Allergy to seafood
CPT/HCPCS: 36415; 80053; 82962; 85027; 86780; 86803; 87522; 87811; C9803-CS; U0003; U0005

== ENCOUNTER 2023-02-14 18:20 | Inpatient (IN) | payer OTHER ==
[2023-02-14 19:58] VITALS: BMI 27.2
[2023-02-14] MEDS ORDERED: LOPERAMIDE HCL 2 MG CAPSULE PO PRN (21:40)
[2023-02-14] MEDS ORDERED: IBUPROFEN 600 MG TABLET (FP) PO PRN (21:40)
[2023-02-14] MEDS ORDERED: MAGNESIUM HYDROX 2400MG/30ML ORAL SUSPENSION 30 ML CUP PO PRN (21:40)
[2023-02-14] MEDS ORDERED: BENZONATATE 200 MG CAPSULE PO PRN (21:40)
[2023-02-14] MEDS ORDERED: POLYETHYLENE GLYCOL (HEALTHYLAX) 3350 17 GM PACKET PO PRN (21:40)
[2023-02-14] MEDS ORDERED: AMMONIUM LACTATE 12% LOTION 225 GM BOTTLE TP PRN (21:40)
[2023-02-14] MEDS ORDERED: NALOXONE HCL 0.4 MG/ML VIAL IM PRN (21:40)
[2023-02-14] MEDS ORDERED: guaiFENesin 600 MG TABLET.ER (FP) PO PRN (21:40)
[2023-02-14] MEDS ORDERED: MAG HYDROX/AL HYDROX/SIMETH 30 ML UNIT-DOSE CUP PO PRN (21:40)
[2023-02-14] MEDS ORDERED: BENZOCAINE/MENTHOL (CHLORASEPTIC ) LOZENGE MM PRN (21:40)
[2023-02-14] MEDS ORDERED: IBUPROFEN 400 MG TABLET (FP) PO PRN (21:40)
[2023-02-14] MEDS ORDERED: COLLOIDAL OATMEAL 1 BAR EACH TP PRN (21:40)
[2023-02-14] MEDS ORDERED: NALOXONE HCL (KLOXXADO) 8 MG SPRAY NS PRN (21:40)
[2023-02-14] MEDS ORDERED: MELATONIN 5 MG TABLETS PO SCH (22:00)
[2023-02-15] MEDS ORDERED: cloNIDine HCL 0.1 MG TABLET PO ONE (06:41)
[2023-02-15] MEDS ORDERED: cloNIDine HCL 0.1 MG TABLET ONE (06:47)
[2023-02-15] MEDS: INSULIN SLIDING SCALE (NOVOLOG) 1 VIAL SQ SCH ×2 (08:58→16:52)
[2023-02-15] MEDS ORDERED: ACETAMINOPHEN 325 MG TABLET (FP) ONE (09:45)
[2023-02-15] MEDS ORDERED: METOPROLOL TARTRATE 50 MG TABLET (FP) PO SCH (10:00)
[2023-02-15] MEDS: PRENATAL VITAMINS W/ FOLIC ACID TABLET (FP) PO SCH (10:02)
[2023-02-15] MEDS ORDERED: PRENATAL VITAMINS W/ FOLIC ACID TABLET (FP) PO ONE (10:04)
[2023-02-15] MEDS: ACETAMINOPHEN 325 MG TABLET (FP) PO PRN ×3 (10:07→22:56)
[2023-02-15 11:08] LABS: HEMOGLOBIN 10.8 GM/dL (11.7-16.9); MCH 28.3 pg (25.7-33.7); MCHC 34.8 g/dl (32.0-35.9); MEAN CELL VOLUME 81.3 fl (80-96); PLATELET COUNT 245 10^3/uL (134-434); RBC 3.81 M/mm3 (4.00-5.60); RDW 14.8 % (11.9-15.9); WHITE BLOOD COUNT 7.1 K/mm3 (4.0-10.0)
[2023-02-15 11:12] LABS: POTASSIUM 3.9 mmol/L (3.5-5.1)
[2023-02-15 11:17] LABS: ALBUMIN 3.1 g/dl (3.4-5.0); BLOOD UREA NITROGEN 11.8 mg/dL (7-18)
[2023-02-15 11:20] LABS: CREATININE 0.8 mg/dL (0.55-1.3)
[2023-02-15 11:21] LABS: BILIRUBIN,TOTAL 0.4 mg/dL (0.2-1)
[2023-02-15] MEDS: THIAMINE HCL 100 MG TABLET (FP) PO SCH ×2 (12:16→21:10)
[2023-02-15] MEDS: METOPROLOL TARTRATE 50 MG TABLET (FP) PO SCH (13:15)
[2023-02-15] MEDS: metFORMIN HCL 500 MG TABLET (FP) PO SCH (16:50)
[2023-02-15] MEDS: traZODone HCL 100 MG TABLET (FP) PO SCH (21:10)
[2023-02-16] MEDS: metFORMIN HCL 500 MG TABLET (FP) PO SCH ×2 (06:32→17:02)
[2023-02-16] MEDS: INSULIN SLIDING SCALE (NOVOLOG) 1 VIAL SQ SCH ×2 (06:33→17:04)
[2023-02-16] MEDS: PRENATAL VITAMINS W/ FOLIC ACID TABLET (FP) PO SCH (10:37)
[2023-02-16] MEDS: METOPROLOL TARTRATE 50 MG TABLET (FP) PO SCH (10:37)
[2023-02-16] MEDS: FERROUS SO4 325 MG TABLET (FP) PO SCH (11:55)
[2023-02-16] MEDS: GABAPENTIN 300 MG CAPSULE PO SCH ×2 (13:30→21:35)
[2023-02-16] MEDS: traZODone HCL 100 MG TABLET (FP) PO SCH (21:35)
[2023-02-16] MEDS: THIAMINE HCL 100 MG TABLET (FP) PO SCH (21:35)
[2023-02-17] MEDS: GABAPENTIN 300 MG CAPSULE PO SCH ×3 (06:35→21:02)
[2023-02-17] MEDS: metFORMIN HCL 500 MG TABLET (FP) PO SCH ×2 (06:35→16:30)
[2023-02-17] MEDS: INSULIN SLIDING SCALE (NOVOLOG) 1 VIAL SQ SCH ×2 (06:36→16:31)
[2023-02-17] MEDS: FERROUS SO4 325 MG TABLET (FP) PO SCH (07:00)
[2023-02-17] MEDS: METOPROLOL TARTRATE 50 MG TABLET (FP) PO SCH (11:31)
[2023-02-17] MEDS: PRENATAL VITAMINS W/ FOLIC ACID TABLET (FP) PO SCH (11:32)
[2023-02-17 14:19] LABS: LDL CHOLESTEROL (ONLY SJRH) 86 mg/dL (5-100)
[2023-02-17 14:20] LABS: CHOLESTEROL 144 mg/dL (50-200)
[2023-02-17 14:25] LABS: HDL CHOLESTEROL 39 mg/dL (40-60)
[2023-02-17] MEDS: THIAMINE HCL 100 MG TABLET (FP) PO SCH (21:01)
[2023-02-17] MEDS: traZODone HCL 100 MG TABLET (FP) PO SCH (21:02)
[2023-02-18] MEDS ORDERED: MELATONIN 5 MG TABLETS PO ONE (00:30)
[2023-02-18] MEDS: metFORMIN HCL 500 MG TABLET (FP) PO SCH ×2 (06:38→17:23)
[2023-02-18] MEDS: GABAPENTIN 300 MG CAPSULE PO SCH ×3 (06:38→21:08)
[2023-02-18] MEDS: INSULIN SLIDING SCALE (NOVOLOG) 1 VIAL SQ SCH ×2 (07:03→17:25)
[2023-02-18] MEDS: FERROUS SO4 325 MG TABLET (FP) PO SCH (07:04)
[2023-02-18 10:45] LABS: URINE APPEARANCE CLEAR; URINE BILIRUBIN NEGATIVE (NEGATIVE); URINE COLOR YELLOW; URINE GLUCOSE (UA) TRACE (NEGATIVE); URINE KETONE NEGATIVE (NEGATIVE); URINE LEUK ESTERASE NEGATIVE (NEGATIVE); URINE NITRITE NEGATIVE (NEGATIVE); URINE PROTEIN NEGATIVE (NEGATIVE); URINE UROBILINOGEN 0.2 mg/dL (0.2-1.0)
[2023-02-18] MEDS: METOPROLOL TARTRATE 50 MG TABLET (FP) PO SCH (11:43)
[2023-02-18] MEDS: PRENATAL VITAMINS W/ FOLIC ACID TABLET (FP) PO SCH (11:43)
[2023-02-18] MEDS: traZODone HCL 100 MG TABLET (FP) PO SCH (21:08)
[2023-02-18] MEDS: THIAMINE HCL 100 MG TABLET (FP) PO SCH (21:08)
[2023-02-18] MEDS: MELATONIN 5 MG TABLETS PO SCH (23:37)
[2023-02-19] MEDS: metFORMIN HCL 500 MG TABLET (FP) PO SCH ×2 (06:11→16:44)
[2023-02-19] MEDS: GABAPENTIN 300 MG CAPSULE PO SCH ×3 (06:11→21:08)
[2023-02-19] MEDS: INSULIN SLIDING SCALE (NOVOLOG) 1 VIAL SQ SCH ×2 (06:12→16:44)
[2023-02-19] MEDS: FERROUS SO4 325 MG TABLET (FP) PO SCH (07:05)
[2023-02-19] MEDS: METOPROLOL TARTRATE 50 MG TABLET (FP) PO SCH (11:11)
[2023-02-19] MEDS: PRENATAL VITAMINS W/ FOLIC ACID TABLET (FP) PO SCH (11:11)
[2023-02-19] MEDS: traZODone HCL 100 MG TABLET (FP) PO SCH (21:08)
[2023-02-19] MEDS: THIAMINE HCL 100 MG TABLET (FP) PO SCH (21:08)
[2023-02-19] MEDS: MELATONIN 5 MG TABLETS PO SCH (21:08)
[2023-02-20] MEDS: GABAPENTIN 300 MG CAPSULE PO SCH ×3 (05:40→21:03)
[2023-02-20] MEDS: metFORMIN HCL 500 MG TABLET (FP) PO SCH ×2 (06:07→16:19)
[2023-02-20] MEDS: INSULIN SLIDING SCALE (NOVOLOG) 1 VIAL SQ SCH ×2 (06:08→16:20)
[2023-02-20] MEDS: FERROUS SO4 325 MG TABLET (FP) PO SCH (07:05)
[2023-02-20] MEDS: PRENATAL VITAMINS W/ FOLIC ACID TABLET (FP) PO SCH (09:41)
[2023-02-20] MEDS: METOPROLOL TARTRATE 50 MG TABLET (FP) PO SCH (09:42)
[2023-02-20] MEDS: THIAMINE HCL 100 MG TABLET (FP) PO SCH (21:03)
[2023-02-20] MEDS: MELATONIN 5 MG TABLETS PO SCH (21:04)
[2023-02-20] MEDS: traZODone HCL 100 MG TABLET (FP) PO SCH (21:04)
[2023-02-21] MEDS: GABAPENTIN 300 MG CAPSULE PO SCH ×3 (06:17→21:11)
[2023-02-21] MEDS: metFORMIN HCL 500 MG TABLET (FP) PO SCH ×2 (06:17→16:34)
[2023-02-21] MEDS: INSULIN SLIDING SCALE (NOVOLOG) 1 VIAL SQ SCH ×2 (06:18→16:36)
[2023-02-21 06:40] VITALS: RESP 18; TEMP 97.5
[2023-02-21] MEDS: FERROUS SO4 325 MG TABLET (FP) PO SCH (07:01)
[2023-02-21] MEDS: METOPROLOL TARTRATE 50 MG TABLET (FP) PO SCH (11:25)
[2023-02-21] MEDS: PRENATAL VITAMINS W/ FOLIC ACID TABLET (FP) PO SCH (11:26)
[2023-02-21] MEDS: traZODone HCL 100 MG TABLET (FP) PO SCH (21:11)
[2023-02-21] MEDS: MELATONIN 5 MG TABLETS PO SCH (21:11)
[2023-02-21] MEDS: THIAMINE HCL 100 MG TABLET (FP) PO SCH (21:11)
[2023-02-22] MEDS: metFORMIN HCL 500 MG TABLET (FP) PO SCH (06:09)
[2023-02-22] MEDS: GABAPENTIN 300 MG CAPSULE PO SCH ×2 (06:10→13:07)
[2023-02-22] MEDS: INSULIN SLIDING SCALE (NOVOLOG) 1 VIAL SQ SCH (06:10)
[2023-02-22 06:38] VITALS: BP 135/81; PULSE 90
[2023-02-22] MEDS: FERROUS SO4 325 MG TABLET (FP) PO SCH (07:07)
[2023-02-22] MEDS: METOPROLOL TARTRATE 50 MG TABLET (FP) PO SCH (09:42)
[2023-02-22] MEDS: PRENATAL VITAMINS W/ FOLIC ACID TABLET (FP) PO SCH (09:42)
== END 2023-02-22 14:55 | disposition home or self-care (01) | DRG 772 ==
LOC: YASAS 18:20 → Y3W 02-15 10:16
PROVIDERS: ADMIT Allergy & Immunology; ATTEND Psychiatry & Neurology Pain Medicine
PROC: HZ42ZZZ Group Counseling for Substance Abuse Treatment, Cognitive-Behavioral (ICD-10-PCS; principal; 2023-02-15)
DX: F14.20 Cocaine dependence, uncomplicated (principal); F19.282 Other psychoactive substance dependence with psychoactive substance-induced sleep disorder; F19.24 Other psychoactive substance dependence with psychoactive substance-induced mood disorder; F31.9 Bipolar disorder, unspecified; F41.9 Anxiety disorder, unspecified; F41.0 Panic disorder [episodic paroxysmal anxiety]; I25.10 Atherosclerotic heart disease of native coronary artery without angina pectoris; I10 Essential (primary) hypertension; Z95.5 Presence of coronary angioplasty implant and graft; E78.5 Hyperlipidemia, unspecified; E11.9 Type 2 diabetes mellitus without complications; Z79.84 Long term (current) use of oral hypoglycemic drugs; M19.041 Primary osteoarthritis, right hand; M19.042 Primary osteoarthritis, left hand; M54.50 Low back pain, unspecified; G89.29 Other chronic pain; Z88.8 Allergy status to other drugs, medicaments and biological substances
CPT/HCPCS: 36415; 80053; 80061; 81003; 82962; 83036; 85027; 86780; C9803-CS; U0003; U0005